=== PATIENT | male | born 1955 | race Caucasian/White ===

== ENCOUNTER 2017-08-06 13:38 | Emergency (ER) | payer OTHER ==
[~2017-08-06] VITALS: Ht 172.7 cm; Wt 79.4 kg
[~2017-08-06 13:38] MED LIST: ADVAIR 250-501 EACH INH; ATENOLOL25 M1 PO; CLOPIDOGREL75 M1 PO; CRESTOR40 M2 PO; CYCLOBENZAPRINE10 M1 PO; FUROSEMIDE20 M1 PO; GABAPENTIN300 M2 PO; MELATONIN3 M4 PO; MELOXICAM15 M1 PO; NITROSTAT0.4 M1 SL; OXYCODONE-ACET1 EACH PO; PANTOPRAZOLE SO40 M1 PO; PERCOCET 5-3251 EACH PO; PROAIR HFA8.5 GM INH; TRAZODONE HCL100 M1 PO; VALTREX1000 MG PO; ZOLPIDEM TARTRA10 M1 PO
[2017-08-06] MEDS ORDERED: TAMSULOSIN HCL0.4 M1 PO (13:54)
[2017-08-06] MEDS ORDERED: FUROSEMIDE20 M1 PO (13:54)
[2017-08-06] MEDS ORDERED: QUETIAPINE FUM100 M1 PO (13:55)
[2017-08-06] MEDS ORDERED: MELOXICAM15 M1 PO (13:55)
--- NOTE | 2017-08-06 13:56 | ED HEADACHE COMPLAINT ---
History of Present Illness General Chief Complaint: Headache Stated Complaint: HEADACHE, DIZZINESS Source: patient, old records Exam Limitations: no limitations Vital Signs & Intake/Output Vital Signs & Intake/Output Vital Signs Date Time Temp Pulse Resp B/P B/P Pulse O2 O2 Flow FiO2 Mean Ox Delivery Rate 08/06 1345 97.5 62 18 151/84 96 Room Air Allergies Coded Allergies: NO KNOWN ALLERGIES (09/20/15) Reconcile Medications Albuterol Sulfate (Proair Hfa) 8.5 GM HFA.AER.AD 2 PUF INH Q4-6 PRN PRN COPD (Reported) Atenolol 25 MG TABLET 1 TAB PO DAILY HEART/BP (Reported) Clopidogrel Bisulfate (Clopidogrel) 75 MG TABLET 1 TAB PO DAILY BLOOD THINNER (Reported) Fiorinal (Fiorinal 50-325-40 MG Capsule) 50 MG-325 MG-40 MG CAPSULE 1 TAB PO Q8 PRN PAIN Furosemide 20 MG TABLET 1 TAB PO DAILY DIURETIC (Reported) Meloxicam 15 MG TABLET 1 TAB PO PRN PAIN/INFLAMMATION (Reported) Nitroglycerin (Nitrostat) 0.4 MG TAB.SUBL 1 TAB SL AD PRN CHEST PAIN ( Reported) 1st sign of attack; may repeat every 5 minutes until relief; if pain persists after 3 tablets in 15 minutes, prompt medical att Pantoprazole Sodium 40 MG TABLET.DR 1 TAB PO PRN GI (Reported) Reason to Stop at ADM: DOES NOT COME IN PILL FORM IN HOSPITAL Quetiapine Fumarate 100 MG TABLET 1 TAB PO PRN SLEEP (Reported) Rosuvastatin Calcium (Crestor) 40 MG TABLET 1 TAB PO DAILY CHOLESTEROL ( Reported) Tamsulosin HCl 0.4 MG CAP.ER.24H 1 CAP PO DAILY PROSTATE (Reported) Triage Note: PT STATES HE BEEN GETTING SEVERE MACHUCA FOR THE PAST MONTH. PT STATES HE HAD 2 BRAIN ANURYSUS IN THE PAST. PT REPORT FEELING DIZZY OFTEN. PT STATES HE WAS SUPPOSE TO F/UP WITH [facility] BUT HE DID NOT. PT STATES HE HAD A STROKE 2007. Triage Nurses Notes Reviewed? yes HPI: This is a 61-year-old male with history of retinitis pigmentosa, legally blind, history of stroke in 2007 status post to aneurysm clippings at [place] who presents here with chief complaint of one month duration of headache and head heaviness in the morning. He also complains of pain in the neck. He feels slightly dizzy and off balance. No recent trauma or fall. He has not followed up with neurology or neurosurgery ever since his surgery. He denies taking any anticoagulants. He thought that maybe a minute enzymes were secondary to his Flomax medication but wanted to come today to make sure everything was fine. Past History Travel History Traveled to [place] past 21 day No Medical History Any Pertinent Medical History? see below for history Neurological: BRAIN ANEURYSM EENT: NONE Cardiovascular: CAD, hypertension, hyperlipidemia, myocardial infarction Respiratory: COPD Gastrointestinal: ULCERS Hepatic: NONE Renal: NONE Musculoskeletal: NONE Psychiatric: NONE Endocrine: NONE Blood Disorders: NONE Cancer(s): NONE WIRE SETTER/Reproductive: NONE Other Medical Hx: LEGALLY BLIND, COLOR BLIND History of MRSA: Yes History of VRE: No History of CDIFF: No Surgical History Surgical History: ANGIOPLASTY Psychosocial History Who do you live with Mother Services at Home None What is your primary language Japanese Tobacco Use: Quit >30 days ago ETOH Use: denies use Illicit Drug Use: denies illicit drug use Family History Family History, If Any: FATHER (POSTATE CANCERDEMENTIA). Hx Contributory? No Review of Systems Review of Systems Constitutional: Denies: chills, fever. Eyes: Reports: no symptoms. Ears, Nose, Throat, Mouth: Reports: no symptoms. Respiratory: Denies: cough, short of breath. Cardiovascular: Reports: no symptoms. Gastrointestinal/Abdominal: Reports: no symptoms. Genitourinary: Reports: no symptoms. Musculoskeletal: Reports: neck pain. Skin: Reports: no symptoms. Neurological/Psychological: Reports: see HPI (DIZZINESS), headache. Hematologic/Endocrine: Reports: no symptoms. Endocrine: Reports: no symptoms. Immunologic/Allergic: Reports: no symptoms. All Other Systems: Reviewed and Negative Physical Exam Physical Exam General Appearance: well developed/nourished, alert, awake, mild distress Head: SURGICAL SCAR RIGHT TEMPORAL REGION Eyes: Bilateral: PERRL, EOMI. Ears, Nose, Throat: normal pharynx, normal ENT inspection, hearing grossly normal Neck: normal inspection, supple, full range of motion Respiratory: normal breath sounds, chest non-tender, no respiratory distress Cardiovascular: regular rate/rhythm Psychiatric: awake, alert, oriented x 3 Cranial Nerves: normal hearing, normal speech, PERRL Core Measures Sepsis Present: No Sepsis Focused Exam Completed? No Progress Differential Diagnosis: IC mass/tumor, intracranial Hem., migraine MACHUCA, tension MACHUCA, ANEURYSM, CAROTID DISSECTION Plan of Care: Orders Procedure Date/time Status URINALYSIS 08/06 1402 Complete TROPONIN LEVEL 08/06 1402 Complete COMPREHENSIVE METABOLIC PANEL 08/06 1402 Complete CBC WITHOUT DIFFERENTIAL 08/06 1402 Complete EKG 08/06 1402 Active Laboratory Tests 08/06/17 1500: Urinalysis LIGHT H, Urine Color YEL, Urine Clarity CLEAR, Urine pH 5.5, Ur Specific [place] >= 1.030, Urine Protein NEG, Urine Ketones NEG, Urine Nitrite NEG, Urine Bilirubin NEG, Urine Urobilinogen 0.2, Ur Leukocyte Esterase NEG, Ur Microscopic SEDIMENT EXAMINED, Urine RBC 1-3, Urine WBC RARE, Ur Epithelial Cells OCCAS, Urine Bacteria FEW H, Hyaline Casts 1-3 H, Granular Casts RARE H , Urine Mucus MANY H, Urine Hemoglobin TRACE-INTACT H, Urine Glucose NEG 08/06/17 1412: Anion Gap 11, Estimated GFR > 60, BUN/Creatinine Ratio 17.5, Glucose 108 H, Calcium 9.3, Total Bilirubin 0.8, AST 31, ALT 41, Alkaline Phosphatase 63, Troponin I < 0.01, Total Protein 7.0, Albumin 4.1, Globulin 2.9, Albumin/ Globulin Ratio 1.4, CBC w Diff NO MAN DIFF REQ, RBC 5.64, MCV 86.6, MCH 29.2, MCHC 33.7, RDW 12.9, MPV 7.6, Gran % 63.7, Lymphocytes % 23.9, Monocytes % 9.0, Eosinophils % 2.8, Basophils % 0.6, Absolute Granulocytes 5.2, Absolute Lymphocytes 1.9, Absolute Monocytes 0.7 H, Absolute Eosinophils 0.2, Absolute Basophils 0 Diagnostic Imaging: Viewed by Me: CT Scan. Discussed w/RAD: CT Scan. Radiology Impression: PATIENT: MAHAD ROJAS PRESENT AGE: 61 PATIENT ACCOUNT NO: [id number] : 55 LOCATION: [facility] ORDERING PHYSICIAN: Brit Baptiste MD SERVICE DATE: 08/06/17 EXAM TYPE: CAT - CT HEAD ANGIOGRAM; CT NECK ANGIOGRAM EXAMINATION: CT ANGIOGRAM NECK AND BRAIN CLINICAL INFORMATION: 61-year-old man with dizziness, headaches, and neck pain. History of aneurysm clipping. COMPARISON: 10/30/[address], 03/22/2008 MRA TECHNIQUE: Test bolus sequences followed by intravenous administration 95 mL of Optiray 320. Helical imaging was performed in the axial plane from the thoracic inlet to the skull vertex. Precontrast and delayed postcontrast imaging of the head was also performed. The data was processed at the chief medical technologist's workstation for generation of MIP sequences. Angled MIPs and volume rendered reformatted images were also generated at an offline 3D workstation. Stenoses are assessed in accordance with NASCET criteria unless otherwise indicated. DLP: 1704 mGy-cm FINDINGS: Brain: There has been prior right frontal temporal craniotomy for surgical clipping of intracranial aneurysms. Aneurysm clips are seen in the region of the right MCA bifurcation and anterior communicating artery complex. No intracranial mass, hemorrhage, extra-axial collection, or midline shift is apparent. No pathologic intra-axial enhancement or regional oligemia is visualized. A mucus retention cyst is visible in the left maxillary sinus. Cervical soft tissues and lung apices: There is moderate to severe centrilobular emphysema. Chest CTA: There is a classic 3 vessel configuration of the aortic arch. Proximal arch vessels are non-stenotic. The left vertebral artery is dominant. No significant ostial stenosis is visualized on either side. Neck CTA: Both vertebral arteries are hypoplastic but widely patent throughout their extracranial cervical course. Both common and internal carotid arteries are normal in course and caliber. Mild atherosclerotic plaquing is noted at both carotid bifurcations. Brain CTA: There is normal opacification of major intracranial arteries. No focal flow-limiting stenosis, discrete proximal large artery occlusion, or new saccular intradural aneurysm is identified. Although assessment for recurrent/residual aneurysm filling is limited by CTA, there is no obvious anterior communicating artery or right MCA bifurcation aneurysm recurrence following surgical ligation. 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 Timing of the contrast allows assessment of the major dural venous sinuses, which all opacify normally. IMPRESSION: No acute intracranial process is appreciated. DICTATED BY: Libertad Hernandez MD DATE/TIME DICTATED:08/06/171530 DIRECTOR AUDIENCE MARKETING:FREDERIC DATE/TIME TRANSCRIBED:08/06/171530 CONFIDENTIAL, DO NOT COPY WITHOUT APPROPRIATE AUTHORIZATION. <Electronically signed in Other Vendor System> SIGNED BY: Libertad Hernandez MD 08/06/17 1548 Initial ED EKG: SINUS BRADYCARDIA @ 53 BPM Departure Departure Time of Disposition: 1604 Disposition: HOME OR SELF CARE Condition: Stable Clinical Impression Primary Impression: Headache Referrals: Jyothi Dwyer APRN (PCP/Family) Additional Instructions: FOLLOW UP WITH DR DWYER IN THE OFFICE THIS WEEK RETURN TO THE ER FOR ANY CHANGING OR WORSENING SYMPTOMS Departure Forms: Customer Survey General Discharge Information Prescriptions: Current Visit Scripts Fiorinal (Fiorinal 50-325-40 MG Capsule) 1 TAB PO Q8 PRN PAIN #10 TAB
[2017-08-06 14:23] LABS: ABSOLUTE BASOPHIL COUNT 0 /CUMM (0.0-0.2); ABSOLUTE EOSINOPHIL COUNT 0.2 /CUMM (0.0-0.7); ABSOLUTE GRANULOCYTE CT 5.2 /CUMM (1.4-6.5); ABSOLUTE LYMPH COUNT 1.9 /CUMM (1.2-3.4); ABSOLUTE MONOCYTE COUNT 0.7 /CUMM (0.10-0.60); BASOPHIL % 0.6 % (0.0-2.0); EOSINOPHIL % 2.8 % (0-5); GRANULOCYTE % 63.7 % (42.2-75.2); HEMATOCRIT 48.9 % (42-52); MEAN CORPUSCULAR HGB 29.2 PG (27.0-31.0); MEAN CORPUSCULAR HGB CONC 33.7 G/DL (33.0-37.0); MEAN CORPUSCULAR VOLUME 86.6 FL (80.0-94.0); MEAN PLATELET VOLUME 7.6 FL (7.4-10.4); PLATELET COUNT 218 /CUMM (130-400); RBC DISTRIBUTION WIDTH 12.9 % (11.5-14.5); RED BLOOD CELL CT 5.64 /CUMM (4.70-6.10); WHITE BLOOD CELL COUNT 8.1 /CUMM (4.8-10.8)
--- NOTE | 2017-08-06 15:48 | CT SCAN REPORT ---
EXAMINATION: CT ANGIOGRAM NECK AND BRAIN CLINICAL INFORMATION: 61-year-old man with dizziness, headaches, and neck pain. History of aneurysm clipping. COMPARISON: 10/30/[address], 03/22/2008 MRA TECHNIQUE: Test bolus sequences followed by intravenous administration 95 mL of Optiray 320. Helical imaging was performed in the axial plane from the thoracic inlet to the skull vertex. Precontrast and delayed postcontrast imaging of the head was also performed. The data was processed at the ultrasound technologist sonographer's workstation for generation of MIP sequences. Angled MIPs and volume rendered reformatted images were also generated at an offline 3D workstation. Stenoses are assessed in accordance with NASCET criteria unless otherwise indicated. DLP: 1704 mGy-cm FINDINGS: Brain: There has been prior right frontal temporal craniotomy for surgical clipping of intracranial aneurysms. Aneurysm clips are seen in the region of the right MCA bifurcation and anterior communicating artery complex. No intracranial mass, hemorrhage, extra-axial collection, or midline shift is apparent. No pathologic intra-axial enhancement or regional oligemia is visualized. A mucus retention cyst is visible in the left maxillary sinus. Cervical soft tissues and lung apices: There is moderate to severe centrilobular emphysema. Chest CTA: There is a classic 3 vessel configuration of the aortic arch. Proximal arch vessels are non-stenotic. The left vertebral artery is dominant. No significant ostial stenosis is visualized on either side. Neck CTA: Both vertebral arteries are hypoplastic but widely patent throughout their extracranial cervical course. Both common and internal carotid arteries are normal in course and caliber. Mild atherosclerotic plaquing is noted at both carotid bifurcations. Brain CTA: There is normal opacification of major intracranial arteries. No focal flow-limiting stenosis, discrete proximal large artery occlusion, or new saccular intradural aneurysm is identified. Although assessment for recurrent/residual aneurysm filling is limited by CTA, there is no obvious anterior communicating artery or right MCA bifurcation aneurysm recurrence following surgical ligation. 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 Timing of the contrast allows assessment of the major dural venous sinuses, which all opacify normally. IMPRESSION: No acute intracranial process is appreciated.
[2017-08-06] MEDS ORDERED: FIORINAL 50-321 EACH PO (16:06)
[2017-08-06 16:19] VITALS: BP 153/75
== END 2017-08-06 16:22 ==
LOC: ERH 13:38
PROVIDERS: Emergency Medicine
DX: R51 Headache (principal)
CPT/HCPCS: 81001; 93005; 93010